=== PATIENT | male | born 1990 ===

== ENCOUNTER 2016-10-06 09:37 | Emergency (ER) | payer OTHER ==
[~2016-10-06] VITALS: Ht 180.3 cm; Wt 70.5 kg
[2016-10-06 09:41] VITALS: Ht 180.3 cm; Wt 70.5 kg
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
--- NOTE | 2016-10-06 10:46 | RADRPT ---
PROCEDURE: CT Head without contrast. CLINICAL INDICATION: Trauma, pain TECHNIQUE: Continuous axial CT images were obtained from the base of skull to the vertex. No cont rast was administered. The calculated radiation dose measures 720 mGy centimeters. The CTDI measures 45 mGy COMPARISON: None available FINDINGS: The ventricles are symmetric and normal in size. There is no mass effect or midline shift. There i s a small retrocerebellar cyst, 2.0 x 1.6 cm. There is no evidence of intracranial hemorrhage. Ther e are no abnormal areas of increased or decreased attenuation in the brain parenchyma. The bony calvarium is intact. The orbital soft tissue contents are unremarkable. Paranasal sinuses appear clear . There is left frontal temporal scalp soft tissue swelling. IMPRESSION: No mass effect or acute intracranial bleed. No visualized fracture. Small retrocerebellar cyst. RPTAT: EE .Dalton Ceron MD, Date Time Electronically viewed and signed by .Dalton Ceron MD, MD on 10/06/2016 10:45 .T/
--- NOTE | 2016-10-06 11:02 | RADRPT ---
PROCEDURE: CT facial bones CLINICAL INDICATION: Trauma, pain TECHNIQUE: Multiphase CT scan of the face was performed in the axial plane. Coronal and sagittal re-formations were performed. The calculated radiation dose measures 558 mGy centimeters. The CTDI m easures 29 mGy COMPARISON: None FINDINGS: The mandible is identified demonstrating no evidence of fracture or bony dysplasia. There is no margo dence of adjacent soft tissue swelling. The mid face and bony orbits demonstrate no evidence of acute fracture. Evaluation of the orbits de monstrates the globes to be normal in their size, shape, and attenuation bilaterally. No definite i ntra or extraconal soft tissue masses are seen. The optic nerve and nerve sheath complexes bilatera lly appear unremarkable. There is mucosal thickening in the paranasal sinuses. There is left frontal scalp soft tissue swelling. IMPRESSION: 1. No visualized fracture or dislocation. 2. Left frontal scalp soft tissue swelling. 3. Chronic sinus disease change. RPTAT: EE. .Dalton Ceron MD, MD Date Time Electronically viewed and signed by .Dalton Ceron MD, on 10/06/2016 11:01 .T/
[2016-10-06] MEDS ORDERED: IBUP-1542 PO (11:25)
== END 2016-10-06 11:39 ==
LOC: E/R 09:37
DX: S09.90XA Unspecified injury of head, initial encounter (principal); S00.83XA Contusion of other part of head, initial encounter; Y08.89XA Assault by other specified means, initial encounter; Z87.891 Personal history of nicotine dependence
CPT/HCPCS: 70450; 70486